=== PATIENT | female | born 1990 | race Caucasian/White ===

== ENCOUNTER 2018-10-28 13:44 | Emergency (ER) | payer SELFPAY ==
[~2018-10-28] VITALS: Ht 157.5 cm; Wt 47.2 kg
[~2018-10-28 13:44] MED LIST: TRAM1TAB4 PO
[2018-10-28 14:09] VITALS: BP 153/101
--- NOTE | 2018-10-28 14:22 | PHYS DOC ---
Past Medical History Past Medical History: Anxiety, Depression, Other Additional Past Medical Histor: Crohns, UC, PTSD Past Surgical History: Other Additional Past Surgical Histo: L knee, abd laparoscopy Alcohol Use: None Drug Use: Marijuana Adult General Chief Complaint Chief Complaint: MEDICAL CLEARANCE [facility] HPI Patient is a 28 year old female who presents to the emergency department with need for medical clearance after being screened for lice and scabies. Patient states that her children are in foster care at this time and [facility] is requiring both she and her significant other be examined for scabies and head lice prior their children to being released back into their custody. She denies any complaints at this time. She denies any pain. Review of Systems Review of Systems Constitutional: Denies fever or chills [] Eyes: Denies change in visual acuity, redness, or eye pain [] HENT: Denies nasal congestion or sore throat [] Respiratory: Denies cough or shortness of breath [] Cardiovascular: No additional information not addressed in HPI [] GI: Denies abdominal pain, nausea, vomiting, bloody stools or diarrhea [] Musculoskeletal: Denies back pain or joint pain [] Integument: Denies rash, itching, or skin lesions [] Neurologic: Denies headache, focal weakness or sensory changes [] Allergies Allergies Allergies Coded Allergies Type Severity Reaction Last Updated Verified propoxyphene Allergy Severe 06/03/16 Yes Physical Exam Physical Exam Constitutional: Well developed, well nourished, no acute distress, non-toxic appearance. [] HENT: Normocephalic, atraumatic, bilateral external ears normal, nose normal, no evidence of lice or nits in hair or on scalp [] Eyes: conjunctiva normal, no discharge. [] Neck: Normal range of motion, no stridor. [] Skin: Warm, dry, no erythema, no rash. [] Extremities: No cyanosis, ROM intact, no edema. [] Neurologic: Alert and oriented X 3, normal motor function, normal sensory function, no focal deficits noted. [] Psychologic: Affect normal, judgement normal, mood normal. [] Current Patient Data Vital Signs Vital Signs Date Time Temp Pulse Resp B/P (MAP) Pulse Ox O2 Delivery O2 Flow Rate FiO2 10/28/18 14:09 97.6 89 18 153/101 (118) 100 Room Air 97.6 EKG EKG [] Radiology/Procedures Radiology/Procedures [] Course & Med Decision Making Course & Med Decision Making Pertinent Labs and Imaging studies reviewed. (See chart for details) [] Dragon Disclaimer Dragon Disclaimer This electronic medical record was generated, in whole or in part, using a voice recognition dictation system. Departure Departure Impression: Primary Impression: Encounter for medical screening examination Additional Impressions: No acute medical problems Feared condition not demonstrated Disposition: HOME, SELF-CARE Condition: STABLE Referrals: NO PCP (PCP) Patient Instructions: Medical Screening Exam Additional Instructions: There were no physical exam findings consistent with a diagnosis of scabies or head lice on exam today. Follow up with your primary care doctor as needed. Problem Qualifiers DEEDEE HENRY APRN Oct 28, 2018 14:22
== END 2018-10-28 14:29 | disposition home or self-care (01) ==
LOC: ER 13:44
DX: Z11.8 Encounter for screening for other infectious and parasitic diseases (principal); F41.9 Anxiety disorder, unspecified; F32.9 Major depressive disorder, single episode, unspecified; Z71.1 Person with feared health complaint in whom no diagnosis is made; Z88.8 Allergy status to other drugs, medicaments and biological substances
CPT/HCPCS: 99281; 99283

== ENCOUNTER 2018-11-06 08:17 | Emergency (ER) | payer SELFPAY ==
[~2018-11-06] VITALS: Ht 157.5 cm; Wt 47.2 kg
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
[2018-11-06] MEDS ORDERED: DICL50TA4 PO (11:12)
[2018-11-06] MEDS ORDERED: CYCL5TAB PO (11:12)
[2018-11-06 11:25] VITALS: BP 105/64
== END 2018-11-06 11:35 | disposition home or self-care (01) ==
LOC: ER 08:17
DX: S16.1XXA Strain of muscle, fascia and tendon at neck level, initial encounter (principal); S39.012A Strain of muscle, fascia and tendon of lower back, initial encounter; S29.012A Strain of muscle and tendon of back wall of thorax, initial encounter; R51 Headache; M25.512 Pain in left shoulder; F41.9 Anxiety disorder, unspecified; F32.9 Major depressive disorder, single episode, unspecified; Z98.51 Tubal ligation status; Z88.8 Allergy status to other drugs, medicaments and biological substances; V43.62XA Car passenger injured in collision with other type car in traffic accident, initial encounter; Y93.89 Activity, other specified; Y92.410 Unspecified street and highway as the place of occurrence of the external cause; Y99.8 Other external cause status
CPT/HCPCS: 70450; 72125; 72128; 72131; 73000; 73030; 99284-25

== ENCOUNTER 2019-03-13 05:06 | Emergency (ER) | payer SELFPAY ==
[~2019-03-13] VITALS: Ht 157.5 cm; Wt 47.2 kg
[~2019-03-13 05:06] MED LIST changes: +CYCL5TAB PO; +DICL50TA4 PO
[2019-03-13 05:27] VITALS: BP 104/77
--- NOTE | 2019-03-13 05:36 | PHYS DOC ---
Past Medical History Past Medical History: Anxiety, Depression, Other Additional Past Medical Histor: Crohns, UC, PTSD Past Surgical History: Tubal ligation, Other Additional Past Surgical Histo: L knee, abd laparoscopy Smoking: Greater than 1 pack/day Alcohol Use: None Drug Use: Marijuana Adult General Chief Complaint Chief Complaint: BODY/HEAD LICE HPI HPI Patient is a 28 year old female who presents for health maintenance to assess for head lice and scabies. Her children are in the foster system and recently had scabies and lice. The court system requires that she has a doctor's note saying that she does not have scabies or lice in order to visit her children. This is her fourth time getting medically cleared of scabies and head lice. She has no active skin lesions. She is getting over a sinus infection and is having a flare of her Chron's Disease this week. Review of Systems Review of Systems Constitutional: Denies fever or chills Eyes: Denies redness or eye pain HENT: Denies nasal congestion or sore throat Respiratory: Reports cough Denies shortness of breath Cardiovascular: Denies chest pain or palpitations GI: Reports abdominal pain, nausea, or vomiting : Denies dysuria or hematuria Musculoskeletal: Denies back pain or joint pain Integument: Denies rash or skin lesions Neurologic: Denies headache, focal weakness or sensory changes Complete systems were reviewed and found to be within normal limits, except as documented in this note. Allergies Allergies Allergies Coded Allergies Type Severity Reaction Last Updated Verified propoxyphene Allergy Severe 06/03/16 Yes Physical Exam Physical Exam Constitutional: Well developed, well nourished, no acute distress, non-toxic appearance. [] HENT: Normocephalic, atraumatic, bilateral external ears normal, oropharynx moist, no oral exudates, nose normal. [] Eyes: PERRLA, EOMI, conjunctiva normal, no discharge. [] Neck: Normal range of motion, no tenderness, supple, no stridor. [] Cardiovascular:Heart rate regular rhythm, no murmur [] Lungs & Thorax: Bilateral breath sounds clear to auscultation [] Abdomen: Bowel sounds normal, soft, no tenderness, no masses, no pulsatile masses. [] Skin: Warm, dry, no erythema, no rash. [] Back: No tenderness, no CVA tenderness. [] Extremities: No tenderness, no cyanosis, no clubbing, ROM intact, no edema. [] Neurologic: Alert and oriented X 3, normal motor function, normal sensory function, no focal deficits noted. [] Psychologic: Affect normal, judgement normal, mood normal. [] EKG EKG [] Radiology/Procedures Radiology/Procedures [] Course & Med Decision Making Course & Med Decision Making Ms. Reyes is a 28-year-old female who presents for medical clearance of scabies and lice. She denies a recent outbreak. On physical exam she has no skin rash indicative of scabies and no head lice is noted. Patient stable for discharge with outpatient follow-up with PCP. Discussed findings and plan with patient, who acknowledge understanding and agreement. Isabelle Disclaimer Isabelle Disclaimer This electronic medical record was generated, in whole or in part, using a voice recognition dictation system. Departure Departure Impression: Primary Impression: Encounter for medical screening examination Additional Impression: Feared condition not demonstrated Disposition: HOME, SELF-CARE Condition: STABLE Referrals: NO PCP (PCP) Patient Instructions: Medical Screening Exam Additional Instructions: No clinical signs of Scabies or Lice noted on physical exam dated 03/13/19 @ 0545 Problem Qualifiers KENISHA JAMES DO Mar 13, 2019 05:36
== END 2019-03-13 06:07 | disposition home or self-care (01) ==
LOC: ER 05:06
DX: Z11.8 Encounter for screening for other infectious and parasitic diseases (principal); Z71.1 Person with feared health complaint in whom no diagnosis is made; F41.9 Anxiety disorder, unspecified; F32.9 Major depressive disorder, single episode, unspecified; F17.200 Nicotine dependence, unspecified, uncomplicated; Z98.51 Tubal ligation status; Z88.8 Allergy status to other drugs, medicaments and biological substances
CPT/HCPCS: 99281